=== PATIENT | female | born 1970 | race Two or more races ===

== ENCOUNTER → 2023-09-16 16:47 | Outpatient (REF) | payer OTHER, SELFPAY | LOC: RAD 16:47 | PROVIDERS: ATTENDING PHYSICIAN Internal Medicine Endocrinology, Diabetes & Metabolism; FAMILY PHYSICIAN Family Medicine | DX: E03.9 Hypothyroidism, unspecified (principal) | CPT/HCPCS: 76536 ==

== ENCOUNTER 2023-11-01 15:34 | Emergency (ER) | payer OTHER, SELFPAY ==
[2023-11-01 15:35] VITALS: BP 141/90
[2023-11-01 16:01] LABS: % Basophils 0.3 % (0-2); % Immature Granulocytes 0.3 % (0-0.5); % Monocytes 1.4 % (1.7-9.3); Absolute Lymphocytes 1.2 10^3/uL (1.2-3.4); Absolute Monocytes 0.2 10^3/uL (0.1-0.6); Absolute Neutrophils 10.3 10^3/uL (1.4-6.5); Hematocrit 39.1 % (37.0-47.0); Mean Corp Hgb Conc. 33.2 g/dL (33.0-37.0); Mean Corpuscular Hgb 25.5 pg (27.0-31.0); Mean Corpuscular Volume 76.8 fL (81.0-99.0); Mean Platelet Volume 12.2 fL (7.4-10.4); Nucleated Red Blood Cells % 0 %; Platelet Count 249 10^3/uL (130-400); Red Blood Cell Count 5.09 10^6/uL (4.20-5.40); Red Cell Dist. Width 15.1 % (11.5-14.5); White Blood Cell Count 11.8 10^3/uL (4.8-10.8)
[2023-11-01 16:12] LABS: HCG, Serum Qualitative Screen Negative
[2023-11-01 16:16] LABS: ALT (SGPT) 37 U/L (0-35); AST (SGOT) 27 U/L (14-36); Albumin 4.5 g/dl (3.5-5.0); Alkaline Phosphatase 136 U/L (38-126); Blood Urea Nitrogen 20 mg/dl (7-17); Calcium 9.8 mg/dl (8.4-10.2); Carbon Dioxide 29 mmol/L (22-30); Chloride 100 mmol/L (98-107); Glucose 155 mg/dl (70-99); Potassium 4.5 mmol/L (3.5-5.1); Sodium 138 mmol/L (135-145); Total Bilirubin 0.3 mg/dl (0.2-1.3); Total Protein 7.5 g/dl (6.3-8.2); eGFR > 60.00
[2023-11-01 17:37] VITALS: BMI 25.4
[2023-11-01 17:43] VITALS: BP 119/77
[2023-11-01 18:00] VITALS: BP 107/78
--- NOTE | 2023-11-01 19:34 | ED.GENMED ---
History of Present Illness
<SÁNCHEZ Pinto - Last Filed: 11/01/23 20:46>
General
Chief Complaint: Head Injury
Source: patient
Exam Limitations: none
Time Seen by Provider: 11/01/23 17:57
Travel History
Have you had any contact with someone who has COVID-19?: No
Do you have any symptoms of coronavirus? Fever > 100 degrees, chills, cough, shortness of breath, sore throat, loss of taste or smell, muscle aches, or headache?: No
History of Present Illness
History of Present Illness:
This is a 53 year old female that comes in with c/o head injury. States that last night she was picking up her sons t-Shirt and she bent over and came up and hit the corner of a shelf. States that she went to bed. Then this morning she had a nose
bleed and felt dizzy. States that the whole left side felt weak and she felt shaky. States that she felt like her vision was slightly blurred. Denies any LOC. States that she noticed her visual slight blurred with moving around. States that she had
a headache on the left sided that goes all the way to the back of the head. States that she has also been on steroid taper and has an appointment with the ENT tomorrow. Denies any fever, chills, chest pain, SOB, abd pain, nausea, vomiting,
diarrhea, dizziness, urinary burning.
Past History
<SÁNCHEZ Pinto - Last Filed: 11/01/23 20:46>
Past History
ED Past Medical History: Hypothyroidism and Other (Migraines, numbness, Questionable Bills's Palsy. PNA, )
ED Past Surgical History: (X 2) and Other (Breast reduction)
Social History
Tobacco: Former smoker
Alcohol: Occasional
Drug: None
Personal:
Living: with family
Review of Systems
<SÁNCHEZ Pinto - Last Filed: 11/01/23 20:46>
Review of Systems
All Other Systems: ROS reviewed and negative except as documented in HPI and ROS
Constitutional: Reports no symptoms; Denies fever or chills
EENT: Reports other (Sinus issues)
Respiratory: Reports no symptoms; Denies cough or trouble breathing
Cardiac: Reports no symptoms; Denies chest pain
ABD/GI: Reports no symptoms; Denies abdominal pain, nausea, vomiting or diarrhea
: Reports no symptoms; Denies dysuria, frequency or urgency
Musculoskeletal: Reports no symptoms
Skin: Reports no symptoms
Neurological: Reports headache, weakness (Left side feels weak, ) and other (Slight left blurred vision); Denies dizzy
Psychiatric: Reports no symptoms
Phy Exam
<SÁNCHEZ Pinto - Last Filed: 11/01/23 20:46>
General Physical Exam
General Presentation: well appearing and no apparent distress
General age: appears stated age
General Skin: warm and dry
General Habitus: normal
General Mental: alert
General Hydration: appears well hydrated
ENT Exam
ENT Exam: TM's normal, pharynx normal and neck supple
Eye Exam
Eye Exam: PERRL and EOMI
Cardiovascular Exam
Cardiovascular Exam: regular rate/rhythm, no edema, no murmur and normal peripheral pulses
Pulmonary Exam
Pulmonary Exam: lungs clear, no respiratory distress, no rales, chest non tender, no crackles, no rhonchi, no wheezing and no cough
Gastrointestinal Exam
Gastrointestinal Exam: normal bowel sounds, non tender, soft, no organomegaly, no pulsatile mass and non distended
NIH Stroke Score
Level of Consciousness: 0 - Alert
LOC questions: 0-Answers both correctly
LOC Commands: 0-Performs both correctly
Best Gaze: 0-Normal
Visual Mitchell: 0=Normal, no visual loss
Facial palsy: 0=Normal, symmetrical
Motor - Right Arm: 0=No drift 10 seconds
Motor - Left Arm: 0=No drift 10 seconds
Motor - Right Le-No drift 5 seconds
Motor - Left Le-No drift 5 seconds
Limb Ataxia: 0-Absent
Sensation: 0-Normal
Best Language: 0-No aphasia
Dysarthria: 0-Normal
Extinction and Inattention: 0-No abnormality
Total Score:: 0
Musculoskeletal Exam
Musculoskeletal Exam: full ROM and no edema
Skin Exam
Skin Exam: normal color, warm/dry, no rash and no petechia
Psychiatric Exam
Psychiatric Exam: normal mood/affect
<Kedar Freitas DO - Last Filed: 11/01/23 23:12>
NIH Stroke Score
Total Score:: 0
Course
<SÁNCHEZ Pinto - Last Filed: 11/01/23 20:46>
Orders/Labs/Results
Orders:
Orders
11/01/23 15:42
EKG [Electrocardiogram (*1)] Urgent
Reason for Study: Vertigo / Dizzy
EKG- Treatment ONCE
Test Result ONCE
11/01/23 15:44
CT Head W/o Iv Contrast Urgent
Comment: L sided blurry vision, no thinners, denies LOC
Reason For Exam: hit L side head, dizzy, pt feels weak L side
11/01/23 15:53
CBC/With Diff [Complete Blood Count/With Diff] Urgent
CMP [Comprehensive Metabolic Panel] Urgent
HCG, Serum Qualitative Screen Urgent
Abnormal Lab Results
11/01/23
15:53
WBC 11.8 H 10^3/uL
(4.8-10.8)
MCV 76.8 L fL
(81.0-99.0)
MCH 25.5 L pg
(27.0-31.0)
RDW 15.1 H %
(11.5-14.5)
MPV 12.2 H fL
(7.4-10.4)
Absolute Neuts (auto) 10.3 H 10^3/uL
(1.4-6.5)
Neutrophils % 88.0 H %
(42.2-75.2)
Lymphocytes % 10.0 L %
(20.5-51.1)
Monocytes % 1.4 L %
(1.7-9.3)
BUN 20 H mg/dl
(7-17)
Glucose 155 H mg/dl
(70-99)
ALT 37 H U/L
(0-35)
Alkaline Phosphatase 136 H U/L
(38-126)
11/01/23 15:53
11/01/23 15:53
WBC slightly elevated. anemia, Dehydration. Glucose nonfasting, ALT very slightly elevated. Alk phos mildly elevated HCG negative.
Vital Signs
Initial and Last Documented VS:
Initial Vital Signs
Temp Pulse Resp BP Pulse Ox
98.1 F 87 18 141/90 98
11/01/23 15:35 11/01/23 15:35 11/01/23 15:35 11/01/23 15:35 11/01/23 15:35
Last Documented Vital Signs
Temp Pulse Resp BP Pulse Ox
98.1 F 56 15 107/78 97
11/01/23 15:35 11/01/23 20:45 11/01/23 20:45 11/01/23 18:00 11/01/23 20:45
Chanlt;Kedar Freitas, DO - Last Filed: 11/01/23 23:12>
Orders/Labs/Results
Orders:
Orders
11/01/23 15:42
EKG [Electrocardiogram (*1)] Urgent
Reason for Study: Vertigo / Dizzy
EKG- Treatment ONCE
Test Result ONCE
11/01/23 15:44
CT Head W/o Iv Contrast Urgent
Comment: L sided blurry vision, no thinners, denies LOC
Reason For Exam: hit L side head, dizzy, pt feels weak L side
11/01/23 15:53
CBC/With Diff [Complete Blood Count/With Diff] Urgent
CMP [Comprehensive Metabolic Panel] Urgent
HCG, Serum Qualitative Screen Urgent
Abnormal Lab Results
11/01/23
15:53
WBC 11.8 H 10^3/uL
(4.8-10.8)
MCV 76.8 L fL
(81.0-99.0)
MCH 25.5 L pg
(27.0-31.0)
RDW 15.1 H %
(11.5-14.5)
MPV 12.2 H fL
(7.4-10.4)
Absolute Neuts (auto) 10.3 H 10^3/uL
(1.4-6.5)
Neutrophils % 88.0 H %
(42.2-75.2)
Lymphocytes % 10.0 L %
(20.5-51.1)
Monocytes % 1.4 L %
(1.7-9.3)
BUN 20 H mg/dl
(7-17)
Glucose 155 H mg/dl
(70-99)
ALT 37 H U/L
(0-35)
Alkaline Phosphatase 136 H U/L
(38-126)
11/01/23 15:53
11/01/23 15:53
Vital Signs
Initial and Last Documented VS:
Initial Vital Signs
Temp Pulse Resp BP Pulse Ox
98.1 F 87 18 141/90 98
04/09/24 15:35 11/01/23 15:35 11/01/23 15:35 11/01/23 15:35 11/01/23 15:35
Last Documented Vital Signs
Temp Pulse Resp BP Pulse Ox
98.1 F 56 15 107/78 97
11/01/23 15:35 11/01/23 20:45 11/01/23 20:45 11/01/23 18:00 11/01/23 20:45
<SÁNCHEZ Pinto - Last Filed: 11/01/23 20:46>
MDM/Problems Addressed
Differential Diagnosis Includes:
Sinusitis, CVA
MDM/Problems Addressed:
This is a 53 year old female that comes in with /o hitting her head last night on a shelf and then this morning she felt like the left sided was weak. States that she has a left sided headache and very slightly blurred vision when she is up moving
around.
Will check labs. CT head,
Patient seen by Dr. Freitas and he is in agreement that patient can be discharged
Chronic conditions affecting care:
Migraines
Acute Exacerbation and/or Progression of Chronic Illness:
NA
<SÁNCHEZ Pinto - Last Filed: 11/01/23 20:46>
*Radiology
Radiology exam reviewed: radiology read reviewed (CT head-No acute intracranial abnrmality. Small volume left sided sphenoid sinus chronic inflammatory changes cannot exclude layering fluid such a superimposed acute sinusitis, somewhat similar to
prior study. )
*Pulse Oximetry
Patient hypoxic: no
*EKG
Interpreted by ED Provider?: Yes
Heart Rate: 68
Rate: normal
Rhythm: sinus
[place]: normal axis
Interval: normal interval
QRS Pattern: normal QRS
Ischemia: no ischemia
*Fiberglass Finisher Interpretation
Rate: bradycardiac
Heart Rate: 56
Rhythm: sinus (Javy)
*Critical Care Note
Total Time (30-74mins, 75-104mins- exclusive of procedures): Not Applicable
ED Attending Note
<SÁNCHEZ Pinto - Last Filed: 11/01/23 20:46>
-
Portions of this chart may have been created with voice recognition software.� Occasional wrong word or��sound alike� substitutions may have occurred due to the inherent limitations of voice recognition software.
<Kedar Freitas DO - Last Filed: 11/01/23 23:12>
ED Attending Note
Patient seen and examined by attending physician: Yes
ED Attending Note:
I have reviewed and agree with history plan by Ricarda Guerrero. My exam revealed
Physical Exam
General: no apparent distress, not acutely ill
Neck: supple. no meningeal signs. normal posterior pharynx
Heart: s1/s2 regular rate and rhythm, no murmur. equal radial
pulses.
HEENT: Pupils equal round reactive to light, EOMI
Lungs: no acute respiratory distress. clear bilaterally
Abdomen: normal bowel sounds. not tender. no CVAT
Neuro: alert and oriented. no focal neurological deficits cranial nerves II through XII intact
Skin: no rash
Psychiatric: well kept. interactive and cooperative
Extremities: no edema. no calf tenderness. negative homans. good distal pulses
Suspect mild concussion, sinusitis. No signs of CVA or intracranial hemorrhage.
Discharge Plan
Departure
Patient Disposition: Home (Routine Discharge)
Date of Disposition: 11/01/23
Time of Disposition: 20:40
Patient with high blood pressure during this ER visit?: No
Condition: Good
Covid-19: Not Applicable
Discharge Problem:
Minor closed head injury, Sinusitis
Instructions: Concussion, Adult (DC), Sinusitis, Adult (DC), Head Injury in Adults (DC)
Prescriptions:
New
amoxicillin-pot clavulanate 875-125 mg tablet
1 tab PO BID Qty: 19 0RF
No Action
multivitamin Tablet
1 tab PO DAILY
zinc acetate 50 mg (zinc) Capsule
50 mg PO DAILY
riboflavin (vitamin B2) [Vitamin B-2] 100 mg tablet
200 mg PO BID
magnesium oxide 400 mg (241.3 mg magnesium) tablet
400 mg PO DAILY
ascorbic acid (vitamin C) [Vitamin C] 500 mg Tablet
500 mg PO DAILY
cyanocobalamin (vitamin B-12) 1,000 mcg/mL Solution
0 mcg SC QMONTH
thyroid (pork) [[place] Thyroid] 15 mg tablet
15 mg PO DAILY
Rx Instructions:
taken w/ 60mg = 75mg
thyroid (pork) [[place] Thyroid] 60 mg tablet
60 mg PO DAILY
Rx Instructions:
taken w/ 15mg = 75mg
Botox 200 unit recon soln
0 unit SC [id number]
(DME) blood-glucose meter [Contour Next One Meter] Misc
Qty: 1 0RF
Rx Instructions:
As Directed
(DME) Contour Next Test Strips Strip
Qty: 70 0RF
Rx Instructions:
BID
Referrals:
Tressa Herrmann MD [Family Provider] - Call in 1-3 days for appt
Activity Restrictions/Additional Instructions:
As discussed, your blood work shows slight anemia and Dehydration. Please increase your water intake to 8-8oz glasses daily. Your CT of the head is negative for any acute injury. However, it does show Sinusitis on the left side. This may have
caused your nose bleed. Please follow up with the ENT specialist as scheduled. You have also been started on an antibiotic to treat the infection. A prescription has been sent to your Pharmacy. IF YOU HAVE ANY OTHER CONCERNS PLEASE RETURN TO THE
EMERGENCY ROOM.
Interventions
Interventions:
*Risk Screen - Suicide Last Done: 11/01/23 15:35
*General Assessment Last Done: 11/01/23 15:35
*Neglect/Abuse Screening Last Done: 11/01/23 15:35
*ED COVID-19 Vaccine History Last Done: 11/01/23 15:42
*Nursing Disposition Last Done: 11/01/23 20:54
ED- Neurological Assessment Last Done: 11/01/23 17:43
ED-Skin Assessment Last Done: 11/01/23 17:43
Discharge Date and Time
Discharge Date/Time: 11/01/23 20:56
Print Language: MACEDONIAN
== END 2023-11-01 20:56 | disposition home or self-care (01) ==
LOC: EMR 15:34
PROVIDERS: Emergency Medicine; EMERGENCY PHYSICIAN Emergency Medicine; FAMILY PHYSICIAN Family Medicine
DX: S09.90XA Unspecified injury of head, initial encounter (principal); J01.90 Acute sinusitis, unspecified; R51.9 Headache, unspecified; H53.8 Other visual disturbances; R53.1 Weakness; R04.0 Epistaxis; W22.09XA Striking against other stationary object, initial encounter; Z87.891 Personal history of nicotine dependence; E03.9 Hypothyroidism, unspecified; Z91.041 Radiographic dye allergy status
CPT/HCPCS: 99284; 70450; 80053; 84703; 85025; 93005

== ENCOUNTER 2023-11-07 10:38 | Emergency (ER) | payer OTHER, SELFPAY ==
[2023-11-07 10:40] VITALS: BP 154/87
--- NOTE | 2023-11-07 21:38 | ED.GENMED ---
History of Present Illness
General
Chief Complaint: Head Injury
Source: patient
Exam Limitations: none
Time Seen by Provider: 11/07/23 12:04
Nursing documentation reviewed up to this point in time: agreed with
Travel History
Have you had any contact with someone who has COVID-19?: No
Do you have any symptoms of coronavirus? Fever > 100 degrees, chills, cough, shortness of breath, sore throat, loss of taste or smell, muscle aches, or headache?: No
History of Present Illness
History of Present Illness:
53 y/o F with h/o migraines
was here on 10/31 for head injyry after hitting her head leon shelf when she bent over and stood up and then felt residual left sided headache, blurre vision and left sided weakness
she came in the following day after the head strike
she had a nonfocal neuro xam and ct showed a left sided chronic sinsuitis vs acute sinusitis findings but otherwise neg
pt was ultimately discharged home suspecting concussion, with abx and steroids for sinusitis as well
she says that int he past several days she has seen opthalmologist and was cleared, ENT and was told to continue the abx but that she had no significant signs of infection
she has continued to have the same symptoms of left sided faical and left arm numbness/pain and headache, and some haziness to vision
nothing is new today but she felt it was a ltitle worse so she came here
however, while waiting to be seen she says that her neurologist whom she sees for migraines was able to squeeze her in today at 2 pm
she wants to know if she can have an MRI now or if not then she wants to see her neurologist
denies fever, vomiting, confusion, focal weakness, slurred speech
pt feels alittle dazed
ahs still been working
Past History
Past History
ED Past Medical History: Hypothyroidism and Other (Migraines, numbness, Questionable Bills's Palsy. PNA, )
ED Past Surgical History: (X 2) and Other (Breast reduction)
Social History
Tobacco: Former smoker
Alcohol: Occasional
Drug: None
Personal:
Living: with family
Review of Systems
Review of Systems
Allergies reviewed?: Yes
All Other Systems: Not applicable
Phy Exam
Physical Exam
Physical Exam:
GENERAL: Alert , in no apparent distress
HEAD: NCAT
EYE: pupils equal and reactive, no nystagmus, no photophobia
NECK: Supple,full rom, nontender
ENT: o/p clr, mmm.
CARDIAC: Regular rate and rhythm . no edema
LUNGS: Clear breath sounds bilaterally, no acute respiratory distress, no wheezes/rales/rhonchi
ABDOMEN: Soft, without focal tenderness, no r/g, no cvat
NEUROLOGICAL: Alert and orientedx 4, cn intact, no facial asymmetry, 5/5 strength in UE/LE, sensation intact, romberg neg, ambulates without assistance, neg pronator drift, objective strength and sensation intact
SKIN: Warm and dry, skin intact.
MUSCULOSKELETAL: No edema, well perfused.
PSYCH: Normal and appropriate interaction.
Course
Vital Signs
Initial and Last Documented VS:
Initial Vital Signs
Temp Pulse Resp BP Pulse Ox
98.3 F 72 16 154/87 98
11/07/23 10:40 11/07/23 10:40 11/07/23 10:40 11/07/23 10:40 11/07/23 10:40
Last Documented Vital Signs
Temp Pulse Resp BP Pulse Ox
98.3 F 72 16 154/87 98
11/07/23 10:40 11/07/23 10:40 11/07/23 10:40 11/07/23 10:40 11/07/23 10:40
MDM/Problems Addressed
Differential Diagnosis Includes:
concussion/post concussive syndrome, migraine, radiculopathy
MDM/Problems Addressed:
53 y/o F with h/o migraines, headaches,
here a few days ago after keila headache, blurry vision left side, left arm weaknessnumbness and was evalauted with labs and head ct
only showing sinusitis probalby cchronic
she was told she likely had conussion, started abx and steroids for sinus infectiomn
she has continued to have symptoms
saw opthalmology and ENT
nothing new today but persistent so she thought she would get checked out but she now has appt with neuro in [address] repeated [address] imaging
has a nonfocal neuro exam, no obvjective deficits
she is well appearing
feel comfortable with d/c amber though i did offer her to have repeat head ct.
she delinced
*Critical Care Note
Total Time (30-74mins, 75-104mins- exclusive of procedures): Not Applicable
ED Attending Note
-
Portions of this chart may have been created with voice recognition software.� Occasional wrong word or��sound alike� substitutions may have occurred due to the inherent limitations of voice recognition software.
Discharge Plan
Departure
Patient Disposition: Home (Routine Discharge)
Date of Disposition: 11/07/23
Time of Disposition: 12:25
Patient with high blood pressure during this ER visit?: No
Condition: Fair
Covid-19: Not Applicable
Discharge Problem:
Post concussion syndrome
Instructions: Concussion, Adult (DC)
Prescriptions:
No Action
multivitamin Tablet
1 tab PO DAILY
zinc acetate 50 mg (zinc) Capsule
50 mg PO DAILY
riboflavin (vitamin B2) [Vitamin B-2] 100 mg tablet
200 mg PO BID
magnesium oxide 400 mg (241.3 mg magnesium) tablet
400 mg PO DAILY
ascorbic acid (vitamin C) [Vitamin C] 500 mg Tablet
500 mg PO DAILY
cyanocobalamin (vitamin B-12) 1,000 mcg/mL Solution
0 mcg SC QMONTH
thyroid (pork) [[place] Thyroid] 15 mg tablet
15 mg PO DAILY
Rx Instructions:
taken w/ 60mg = 75mg
thyroid (pork) [[place] Thyroid] 60 mg tablet
60 mg PO DAILY
Rx Instructions:
taken w/ 15mg = 75mg
Botox 200 unit recon soln
0 unit SC [id number]
(DME) blood-glucose meter [Contour Next One Meter] Misc
Qty: 1 0RF
Rx Instructions:
As Directed
(DME) Contour Next Test Strips Strip
Qty: 70 0RF
Rx Instructions:
BID
amoxicillin-pot clavulanate 875-125 mg tablet
1 tab PO BID Qty: 19 0RF
Referrals:
Tressa Herrmann MD [Family Provider] - Follow up in 2-3 days
Activity Restrictions/Additional Instructions:
Your symptoms could be from postconcussive syndrome, you also could have some radiculopathy from your neck causing some radiation into your arm. You had a normal neurologic exam today and at this time declined a repeat CAT scan. You are going to
see your neurologist. Should you have any change in your symptoms you can always return. Try Tylenol for pain, practice brain rest for another 2 days limiting your phone and reading so that you can hopefully heal.
Interventions
Interventions:
*General Assessment Last Done: 11/07/23 12:28
*ED COVID-19 Vaccine History Last Done: 11/07/23 10:40
*Nursing Disposition Last Done: 11/07/23 12:28
ED- Neurological Assessment Last Done: 11/07/23 11:44
ED-Skin Assessment Last Done: 11/07/23 11:44
Discharge Date and Time
Discharge Date/Time: 11/07/23 12:30
Print Language: BENINESE
== END 2023-11-07 12:30 | disposition home or self-care (01) ==
LOC: EMR 10:38
PROVIDERS: EMERGENCY PHYSICIAN Emergency Medicine; FAMILY PHYSICIAN Family Medicine
DX: R51.9 Headache, unspecified (principal); R53.1 Weakness; H53.8 Other visual disturbances; F07.81 Postconcussional syndrome; W22.09XA Striking against other stationary object, initial encounter; Z87.891 Personal history of nicotine dependence
CPT/HCPCS: 99283

== ENCOUNTER → 2023-11-18 11:55 | Outpatient (REF) | payer OTHER, SELFPAY | LOC: MRI 3T 11:55 | PROVIDERS: ATTENDING PHYSICIAN Physician Assistant Medical; FAMILY PHYSICIAN Family Medicine | DX: R53.1 Weakness (principal); H57.12 Ocular pain, left eye; R22.0 Localized swelling, mass and lump, head | CPT/HCPCS: 70551; 72141 ==

== ENCOUNTER → 2024-06-27 08:27 | Outpatient (REF) | payer OTHER, SELFPAY | LOC: RAD 08:27 | PROVIDERS: ATTENDING PHYSICIAN Physician Assistant Medical | DX: Z13.820 Encounter for screening for osteoporosis (principal); M79.642 Pain in left hand | CPT/HCPCS: 73130; 77080 ==

== ENCOUNTER → 2024-09-01 13:58 | Outpatient (REF) | payer OTHER, SELFPAY | LOC: WDC 13:58 | PROVIDERS: ATTENDING PHYSICIAN Obstetrics & Gynecology; FAMILY PHYSICIAN Family Medicine | DX: Z12.31 Encounter for screening mammogram for malignant neoplasm of breast (principal) | CPT/HCPCS: 77063; 77067 ==

== ENCOUNTER → 2024-12-26 12:39 | Outpatient (REF) | payer OTHER, SELFPAY | LOC: WDC 12:39 | PROVIDERS: ATTENDING PHYSICIAN Obstetrics & Gynecology; FAMILY PHYSICIAN Family Medicine | DX: R92.333 Mammographic heterogeneous density, bilateral breasts (principal) | CPT/HCPCS: 76641 ==